=== PATIENT | male | born 1985 | race African-American/Black ===

== ENCOUNTER 2017-08-06 03:47 | Emergency (ER) | payer SELFPAY ==
[~2017-08-06] VITALS: Ht 182.9 cm; Wt 73.0 kg
[2017-08-06 04:00] VITALS: BP 0/0
[2017-08-06] MEDS ORDERED: SODIUM BICARBONATE 7.5% 0.9 MEQ/ML 50ML SYR IV ONE (06:00)
[2017-08-06] MEDS ORDERED: EPINEPHRINE 0.1MG/ML (1:10,000) 10ML SYR ONE (06:00)
== END 2017-08-06 04:04 | disposition expired ==
LOC: EDBD 03:47 → ER 03:48
DX: I46.9 Cardiac arrest, cause unspecified (principal); Z85.118 Personal history of other malignant neoplasm of bronchus and lung
CPT/HCPCS: 92950; 99285; J0171; J3490